=== PATIENT | male | born 1940 | race Two or more races ===

== ENCOUNTER 2021-03-28 18:37 | Emergency (ER) | payer OTHER ==
[~2021-03-28] VITALS: Ht 170.2 cm; Wt 89.8 kg
[2021-03-28] MEDS ORDERED: VASOTEC2.5 MG (19:09)
[2021-03-28] MEDS ORDERED: ZOCOR40 MG (19:09)
[2021-03-28] MEDS ORDERED: FOLIC ACID20 MG (19:10)
[2021-03-28] MEDS ORDERED: ECOTRIN81 MG (19:10)
[2021-03-28] MEDS ORDERED: CALTRATE 600+D1 EAC1 (19:10)
[2021-03-28] MEDS ORDERED: CENTRUM ADULTS1 EACH (19:10)
== END 2021-03-28 22:35 | disposition home or self-care (01) ==
LOC: ER 18:37
DX: S00.83XA Contusion of other part of head, initial encounter (principal); W10.8XXA Fall (on) (from) other stairs and steps, initial encounter; Y93.89 Activity, other specified; Y92.018 Other place in single-family (private) house as the place of occurrence of the external cause; Y99.8 Other external cause status

== ENCOUNTER 2023-06-19 18:20 | Emergency (ER) | payer OTHER ==
[~2023-06-19] VITALS: Ht 170.2 cm; Wt 86.6 kg
[~2023-06-19 18:20] MED LIST: CALTRATE 600+D1 EAC1; CENTRUM ADULTS1 EACH; ECOTRIN81 MG; FOLIC ACID20 MG; VASOTEC2.5 MG; ZOCOR40 MG
== END 2023-06-19 19:36 | disposition home or self-care (01) ==
LOC: ER 18:20
DX: K59.00 Constipation, unspecified (principal)

== ENCOUNTER 2025-09-08 16:01 | Emergency (ER) | payer OTHER ==
[~2025-09-08] VITALS: Ht 167.6 cm; Wt 89.8 kg
[2025-09-08] MEDS ORDERED: CLINDAMYCIN PHOSPHATE 150 MG/ML (600mg) IV ONE (17:30)
[2025-09-08] MEDS ORDERED: TETANUS & DIPHTHERIA TOX,ADULT 0.5 ML VIAL IM ONE (17:30)
[2025-09-08] MEDS ORDERED: DIPHTH,PERTUSS(ACELL),TET VAC 0.5 ML SYRINGE IM ONE (18:58)
[2025-09-08] MEDS ORDERED: CLINDAMYCIN PHOSPHATE 150 MG/ML (300mg) ONE (18:58)
[2025-09-08] MEDS ORDERED: LIDOCAINE HCL 1% 10ML VIAL ONE (19:08)
== END 2025-09-08 20:45 | disposition home or self-care (01) ==
LOC: ER 16:02
DX: S61.252A Open bite of right middle finger without damage to nail, initial encounter (principal); W54.0XXA Bitten by dog, initial encounter; Y93.89 Activity, other specified; Y92.89 Other specified places as the place of occurrence of the external cause; I10 Essential (primary) hypertension
CPT/HCPCS: 90471; 90714; 96365; 99282; J1670; J3490

== ENCOUNTER 2025-09-24 11:21 | Emergency (ER) | payer OTHER ==
[~2025-09-24] VITALS: Ht 175.3 cm; Wt 85.3 kg
[2025-09-24 12:34] VITALS: BP 117/76; O2SAT 98
[2025-09-24] MEDS ORDERED: MUPIROCIN15 GM TOP (13:02)
== END 2025-09-24 13:45 | disposition home or self-care (01) ==
LOC: ER 11:21
DX: Z48.02 Encounter for removal of sutures (principal)

== ENCOUNTER 2025-10-05 21:22 | Emergency (ER) | payer OTHER ==
[~2025-10-05] VITALS: Ht 170.2 cm; Wt 89.8 kg
[~2025-10-05 21:22] MED LIST changes: +MUPIROCIN15 GM TOP
[2025-10-06 03:27] LABS: BASO % 0.3 % (0.1-1.2); EOS # 0.33 (0.04-0.54); EOS % 5.2 % (0.7-7.0); LYMPH # 1.53 (1.18-3.74); LYMPH % 24.1 % (19.3-53.1); MEAN PLATELET VOLUME 10.00 fl (9.4-12.4); MONO # 0.79 (0.24-0.82); NEUT # 3.67 (1.56-6.13); NEUT % 57.7 % (34.0-71.1); RED CELL DISTRIBUTION WIDTH 13.1 % (11.6-14.4)
[2025-10-06 03:30] LABS: MONO % 12.4 % (4.7-12.5)
[2025-10-06 04:02] LABS: ALT/SGPT 24.0 U/L (12-78); AST/SGOT 25.0 U/L (15-37); BILIRUBIN TOTAL 0.44 mg/dL (0.3-1.2); BUN CREA RATIO 43.0 (7.0-25.0); CREATININE SERUM 0.68 mg/dL (0.70-1.30); GFR 111.36; GLOBULINA 3.3 G/DL (2.4-3.5); GLUCOSE FASTING 85.0 mg/dL (65-100); OSMOLALITY SERUM 288.0 MOSM/KG (275-295)
== END 2025-10-06 09:46 | disposition home or self-care (01) ==
LOC: ER 21:23
PROVIDERS: Preventive Medicine Public Health & General Preventive Medicine
DX: R42 Dizziness and giddiness (principal); I10 Essential (primary) hypertension; E78.49 Other hyperlipidemia